=== PATIENT | female | born 1965 | race Two or more races ===

== ENCOUNTER 2024-04-03 11:41 | Emergency (ER) | payer MEDICAID, SELFPAY ==
[2024-04-03 12:35] VITALS: BP 158/90; PULSE 60; RESP 17; TEMP 36.6; O2SAT 94; BMI 26.6
--- NOTE | 2024-04-03 12:48 | XR_ITS ---
Examination: Duplex scan of the lower extremity, unilateral left complete Date and time of exam: April 03, 2024 1410 hrs. Indications: Left leg swelling and pain beginning 2 weeks ago Technique: Duplex scan of the extremity veins using B-mode/grayscale imaging and Doppler spectral analysis and color flow Attention is directed to internal echogenicity, compression and augmentation involving these veins, color flow assessment, spectral analysis Findings: Major deep venous structures in the extremity demonstrate normal course and caliber. There is no evidence of deep vein thrombosis. Normal color flow and spectral analysis Impression: Negative for DVT..
--- NOTE | 2024-04-03 12:48 | XR_ITS ---
Examination: Left knee 2 views Technique one AP lateral left knee 2 views Exam date and time: 11/02/2023 1308 hrs. Indications: Left knee pain beginning 2 weeks ago. Findings: Moderate osteopenia No fracture or dislocation Early osteoarthritis medial patellofemoral joint Small to moderate knee effusion Impression: No fracture Small to moderate knee effusion Early osteoarthritis
--- NOTE | 2024-04-03 12:49 | PD.EDLOWEX ---
Lower Extremity Injury RME/HPI General Chief Complaint: Extremity Injury, Lower Stated Complaint: PAIN IN LEFT FOOT X2 WEEKS Time Seen by Provider: 04/03/24 11:45 Arrival date/time: 04/03/24 11:41 RME / HPI RME / HPI Narrative: 58-year-old female patient with no significant medical history, came in for evaluation regarding left lower leg pain. More on the medial aspect has been ongoing for the last 2 weeks associated with mild swelling. Pain is worse with ambulation. Patient also complained of knee pain described as dull ache severity mild. Denies any chest pain denies any history of blood clots or DVT in the past. Denies any long travel denies any other complaints no medications taken prior to arrival. Related Data Home Medications ?Medication ?Instructions ?Recorded ?Confirmed omeprazole 20 mg capsule,delayed 20 mg PO QDAY 08/05/20 08/31/20 release acetaminophen 325 mg tablet 325 mg PO QID PRN Pain 09/01/20 09/01/20 (Tylenol) Previous Rx's ?Medication ?Instructions ?Recorded docusate sodium 100 mg capsule 100 mg PO BID #40 caps 09/01/20 (Colace) hydrocodone 5 mg-acetaminophen 325 1 tab PO Q6H PRN pain (scale score 09/01/20 mg tablet 7-10) #20 tabs ibuprofen 600 mg tablet 600 mg PO Q8H PRN pain (scale 09/01/20 score 4-6) #15 tabs ibuprofen 800 mg tablet 800 mg PO TID PRN pain #30 tabs 09/05/21 meloxicam 15 mg tablet 15 mg PO QDAY #14 tabs 04/03/24 naproxen 500 mg tablet (Naprosyn) 500 mg PO BID PRN pain #30 tabs 04/03/24 Allergies Allergy/AdvReac Type Severity Reaction Status Date / Time No Known Allergies Allergy Verified 04/03/24 11:44 Review of Systems Review of Systems Narrative Review of Systems: Review of system reviewed and within normal limits except mentioned in HPI ED Exam Narrative Physical exam: VITAL SIGNS: Reviewed. GENERAL APPEARANCE: Alert and interactive, follows commands, no acute distress, HEAD AND FACE: Non-traumatic. ENT: PERRL, pink conjunctivitis, eyelid no trauma, Mucous membrane moist. NECK: Supple, nontender, no nuchal rigidity. CHEST: No tenderness, no crepitus, no paradoxical movement, no retractions. LUNGS: Clear, well ventilated, symmetric, no rales, no wheezing, no ronchi, no stridor, good breath sounds bilaterally. HEART: Regular rate, regular rhythm, no murmur, no gallops. ABDOMEN: Soft, positive bowel sounds, nondistended, no guarding, nontender, no rebound, no masses, RECTAL: Deferred. GENITAL: Deferred. NEUROLOGICAL: Gross motor function intact sensory function intact, Appropriate for age. MUSCULOSKELETAL: low back nontender, full range of motion. EXTREMITIES: Left knee tenderness, left medial thigh and medial lower leg tenderness, no swelling no redness, full range of motion. SKIN: Color pink, dry, no rash, no lacerations, no abrasions, no contusions. LYMPHATICS: Deferred. Course Quality Measures none Orders Category Date Time Status US venous doppler LE LT Stat Exams 04/03/24 12:48 Completed XR knee limited LT 2V Stat Exams 04/03/24 12:48 Completed Ketorolac Inj [Toradol Inj] Med 04/03/24 12:48 Discontinued 30 mg IM X1 ONE Vital Signs Vital signs: Vital Signs Temperature 97.9 F 04/03/24 12:35 Pulse Rate 60 04/03/24 12:35 Respiratory Rate 17 04/03/24 12:35 Blood Pressure 158/90 H 04/03/24 12:35 Pulse Oximetry (%) 94 L 04/03/24 12:35 Oxygen Delivery Method Room Air 04/03/24 12:35 Extremity Injury, Lower MDM Narrative MDM Narrative:: 58-year-old female patient with no significant medical history, came in for evaluation regarding left lower leg pain. More on the medial aspect has been ongoing for the last 2 weeks associated with mild swelling. Pain is worse with ambulation. Patient also complained of knee pain described as dull ache severity mild. Denies any chest pain denies any history of blood clots or DVT in the past. Denies any long travel denies any other complaints no medications taken prior to arrival. Ultrasound of the lower extremities negative for DVT. X-ray of the knee showed early osteoarthritis and mild Patient data External records reviewed:: None Clinical information provided by:: patient Social determinants that could affect healthcare access:: none Patient has the following chronic illnesses:: None How is presenting disease/condition affected by chronic disease/condition?: no chronic disease Evaluation data The following diagnostics were reviewed and interpreted by me:: lab results Lab and/or radiology exams considered but not ordered:: None Interpretation Summary: Ultrasound of the lower extremities negative for DVT, extremity showed mild osteoarthritis and mild fluid effusion. Results discussed with the patient. Medications / Prescriptions Medications or Prescriptions considered but not ordered:: None Medication administrations:: Medication Administration History Discontinued Medications Ketorolac Tromethamine (Ketorolac Inj 60 Mg/2 Ml Vial) 30 mg IM X1 ONE Stop: 04/03/24 12:49 Last Admin: 04/03/24 12:59 Dose: 30 mg Documented By: OA Toradol IM Consultations Consultation(s) initiated? (list below): No Diagnosis Extremity Injury, Lower Differential Diagnosis: other (Knee pain, osteoarthritis knee, DVT) Most likely diagnosis given after review of the tests above:: Knee pain Admission Indicated Admission indicated?: not indicated Explain why admission is indicated or not indicated:: Stable Admission Request Was there a request for admission?: No Disposition Plan Disposition Plan: Discharge Discharge Attestation Discharge Attestation: The patient was given an opportunity to ask questions and understood the discharge instructions. Discharge instructions specifically effects, indications for sooner follow up or return to the emergency department, and the expected course of current diagnosis. Patient condition: Stable Discharge Plan Plan Patient Disposition: HOME (Self Care) Disposition Comment: Stable Prescriptions/Referrals Prescriptions/Med Rec: New naproxen [Naprosyn] 500 mg tablet 500 mg PO BID PRN (Reason: pain) Qty: 30 0RF meloxicam 15 mg tablet 15 mg PO QDAY Qty: 14 0RF No Action omeprazole 20 mg Capsule,Delayed Release(Dr/Ec) 20 mg PO QDAY acetaminophen [Tylenol] 325 mg Tablet 325 mg PO QID PRN (Reason: Pain) Hold Instructions: Resume on 09/06/20. hydrocodone-acetaminophen 5-325 mg tablet 1 tab PO Q6H MDD 4 PRN (Reason: pain (scale score 7-10)) Qty: 20 0RF docusate sodium [Colace] 100 mg capsule 100 mg PO BID Qty: 40 0RF ibuprofen 600 mg tablet 600 mg PO Q8H PRN (Reason: pain (scale score 4-6)) Qty: 15 0RF ibuprofen 800 mg tablet 800 mg PO TID PRN (Reason: pain) Qty: 30 0RF Problem List Clinical Impression: Acute knee pain Patient/Caregiver Discharge Instructions Discharge Activity: activity as tolerated Education Materials: Knee Pain Additional Instructions: Thank you for the opportunity for serving you today. You are stable for discharged . You are advised to: Follow-up with your PCP in 1 to 2 days Return to ED for worsening of symptoms Increase oral fluids Take medication as prescribed Print Language: Com[place]an Stand Alone Forms: Yelena Award Info., Patient Portal Info Letter PA/VASCULAR TECHNOLOGIST SONOGRAPHER Supervising Physician PA/FAROOQ Supervising Physician: MD Tracey
[2024-04-03] MEDS: KETOROLAC INJ 60 MG/2 ML VIAL 30 MG IM (12:59)
[2024-04-03 15:08] VITALS: BP 140/80; PULSE 62; RESP 17; TEMP 36.6; O2SAT 95
== END 2024-04-03 15:35 | disposition home or self-care (01) ==
LOC: SERX 16:23
PROVIDERS: Emergency Provider Emergency Medicine
DX: M17.12 Unilateral primary osteoarthritis, left knee (principal); M79.89 Other specified soft tissue disorders
CPT/HCPCS: 73560; 93971; 96372; 99284; J1885

== ENCOUNTER → 2024-08-09 | Outpatient (CLI) | payer MEDICAID, SELFPAY ==
--- NOTE | 2024-08-09 15:00 | XR_ITS ---
Examination: Screening digital mammography, bilateral Computer aided detection 3-D breast Tomosynthesis, bilateral Date and time of exam: August 09, 2024 1455 hours Indication: Screening Technique: Nonmagnified MLO, CC views of the breasts to been obtained, reconstructed from 3-D Tomosynthesis images. R2 computer aided detection program utilized for evaluation of suspicious masses and/or abnormal calcifications. 3-D Tomosynthesis images obtained. Findings: The breasts are heterogeneously dense, which may obscure small masses Benign calcifications No suspicious masses Impression: BI-RADS category II: Benign Findings. Recommend 1 year follow-up mammogram.
== END | disposition home or self-care (01) ==
LOC: CDIM 14:50
PROVIDERS: Referring Provider Physician Assistant; Visit Provider Physician Assistant
DX: Z12.31 Encounter for screening mammogram for malignant neoplasm of breast (principal); R92.323 Mammographic fibroglandular density, bilateral breasts; R92.1 Mammographic calcification found on diagnostic imaging of breast
CPT/HCPCS: 77063; 77067